=== PATIENT | female | born 1995 | race Caucasian/White ===

== ENCOUNTER 2016-09-13 00:11 | Emergency (ER) | payer BC ==
[~2016-09-13] VITALS: Ht 154.9 cm; Wt 50.5 kg
[~2016-09-13 00:11] MED LIST: ALPRAZOLAM0.25 M2; BACTRIM,SEPT1 TABLET PO; CRANBERRY200 MG PO; DESOGESTR-ETH1 EACH PO; IBUPROFEN400 MG PO; KEFLEX500 MG PO; MACROBID100 MG PO; MOTRIN600 MG PO; NAPROSYN500 MG PO; NOHOMEMEDS; NORCO 5/3251 TABLET PO; ORTHO NOVUM PO; PERCOCET 5/31 TABLET PO; PYRIDIUM200 MG PO; TESSALON PERLE100 MG PO; TORADOL10 MG PO; TRAMADOL HCL50 MG PO; TYLENOL EXTRA500 MG PO; ULTRACET1 TABLET PO; ULTRAM50 MG PO; VIBRAMYCIN100 MG PO; ZOFRAN4 MG PO; [UNRECOGNIZED DRUG - REMARK]
[2016-09-13 00:34] VITALS: BP 120/72
[2016-09-13 00:53] LABS: ADD MIUA? YES; BILIRUBIN NEGATIVE; BLOOD SMALL; COLOR YELLOW ((YELLOW)); GLUCOSE (STRIP) NEGATIVE; KETONES NEGATIVE; LEUKOCYTES NEGATIVE; NITRITE NEGATIVE; PROTEIN (STRIP) NEGATIVE; SPECIFIC GRAVITY 1.023 (1.000-1.030); UROBILINOGEN 0.2 MG/DL (0.2-1.0)
[2016-09-13 01:09] LABS: BACTERIA RARE /HPF; EPITHELIAL CELLS 2+ /HPF; MUCUS 2+ /LPF; RED BLOOD CELLS 0-5 /HPF (0-5); UCUL ADDED? NO; WHITE BLOOD CELLS 0-5 /HPF (0-5)
[2016-09-13 01:27] LABS: HEMATOCRIT 41.9 % (36.0-46.0); MCH 30.8 PG (29.0-34.0); MCHC 33.4 G/DL (30.0-36.0); MCV 92.1 FL (83-99); MEAN PLAT.VOLUME 11.1 uM^3 (9.5-12.4); PLATELET COUNT 239 K/uL (156-360); RBC DIS.WIDTH-CV 12.2 % (11.8-14.6); RBC DIS.WIDTH-SD 41.1 % (39-53); RED BLOOD COUNT 4.55 M/uL (3.80-5.20)
[2016-09-13 01:40] LABS: CHLORIDE 107 mEq/L (99-109); POTASSIUM 3.7 mEq/L (3.7-5.4); SODIUM 138 mEq/L (136-147)
[2016-09-13 01:43] LABS: GLUCOSE 92 mg/dL (70-99)
[2016-09-13 01:44] LABS: ANION GAP 8 MEQ/L (2-14); TOTAL BILIRUBIN 0.6 mg/dL (0.0-1.0)
[2016-09-13 01:46] LABS: ALKALINE PHOSPHATASE 78 IU/L (3-129); GFR ESTIMATE (CALCULATED) > 59 mL/min/
[2016-09-13 01:47] LABS: UREA NITROGEN (BUN) 11 mg/dL (9-23)
[2016-09-13 01:50] LABS: LIPASE 34 U/L (1.0-51.0)
[2016-09-13 01:59] LABS: QUANTITATIVE HCG < 4.0 MIU/ML
== END 2016-09-13 04:22 | disposition left against medical advice (07) ==
LOC: EME 00:11
DX: R10.31 Right lower quadrant pain (principal); R11.0 Nausea; R50.9 Fever, unspecified; Z53.21 Procedure and treatment not carried out due to patient leaving prior to being seen by health care provider
CPT/HCPCS: 80053; 81003; 83690; 84702; 85027

== ENCOUNTER 2016-09-20 18:26 | Emergency (ER) | payer BC ==
[~2016-09-20] VITALS: Ht 160 cm; Wt 50.8 kg
[2016-09-20 19:15] LABS: HEMATOCRIT 39.7 % (36.0-46.0); MCH 31.3 PG (29.0-34.0); MCHC 34.3 G/DL (30.0-36.0); MCV 91.5 FL (83-99); PLATELET COUNT 244 K/uL (156-360); RBC DIS.WIDTH-CV 11.8 % (11.8-14.6); RBC DIS.WIDTH-SD 39.8 % (39-53); RED BLOOD COUNT 4.34 M/uL (3.80-5.20)
[2016-09-20 19:27] LABS: CHLORIDE 106 mEq/L (99-109); POTASSIUM 4.1 mEq/L (3.7-5.4); SODIUM 140 mEq/L (136-147)
[2016-09-20 19:29] LABS: GLUCOSE 82 mg/dL (70-99)
[2016-09-20 19:31] LABS: ANION GAP 10 MEQ/L (2-14); TOTAL BILIRUBIN 0.3 mg/dL (0.0-1.0)
[2016-09-20 19:33] LABS: ALKALINE PHOSPHATASE 82 IU/L (3-129); GFR ESTIMATE (CALCULATED) > 59 mL/min/
[2016-09-20 19:34] LABS: UREA NITROGEN (BUN) 11 mg/dL (9-23)
[2016-09-20 19:43] LABS: QUANTITATIVE HCG < 4.0 MIU/ML
[2016-09-20 20:25] LABS: ADD MIUA? YES; BILIRUBIN NEGATIVE; BLOOD NEGATIVE; COLOR YELLOW ((YELLOW)); GLUCOSE (STRIP) NEGATIVE; KETONES NEGATIVE; LEUKOCYTES NEGATIVE; NITRITE NEGATIVE; PROTEIN (STRIP) 30; SPECIFIC GRAVITY 1.019 (1.000-1.030); UROBILINOGEN 0.2 MG/DL (0.2-1.0)
[2016-09-20 21:02] LABS: AMORPHOUS PHOSPHATE CRYSTALS 4+; BACTERIA NONE SEEN /HPF; CASTS NONE SEEN /LPF; CRYSTALS PRESENT; EPITHELIAL CELLS 2+ /HPF; MUCUS NONE SEEN /LPF; RED BLOOD CELLS NONE SEEN /HPF (0-5); UCUL ADDED? NO; WHITE BLOOD CELLS NONE SEEN /HPF (0-5)
[2016-09-20] MEDS ORDERED: ULTRAM50 MG PO (21:07)
[2016-09-20 21:27] VITALS: BP 119/67
== END 2016-09-20 21:28 | disposition home or self-care (01) ==
LOC: EME 18:26
DX: N83.201 Unspecified ovarian cyst, right side (principal); F17.200 Nicotine dependence, unspecified, uncomplicated; Z87.442 Personal history of urinary calculi
CPT/HCPCS: 74177; 80053; 81003; 84702; 85027; 99281; 99284; J2405; J3010; J7030